=== PATIENT | male | born 1950 | race Caucasian/White ===

== ENCOUNTER 2020-01-28 05:52 | Day surgery (SDC) | payer MEDICARE ==
[2020-01-28] MEDS ORDERED: Lactated Ringers 1,000 ML IV SCH (06:30)
[2020-01-28] MEDS ORDERED: DIPRIVAN 200 MG/20 ML IV ONE (07:49)
[2020-01-28 08:44] VITALS: O2SAT 97
[2020-01-28 08:56] VITALS: BP 130/77; PULSE 62
--- NOTE | 2020-01-28 09:17 | OP ---
SURGERY DATE/TIME: 01/28/2020 0739 PREOPERATIVE DIAGNOSIS: History of colon polyps. POSTOPERATIVE DIAGNOSIS: Small polyp in hepatic flexure. PROCEDURE: Colonoscopy with cold forceps biopsy. SURGEON: Dr. Padron. ANESTHESIA: MAC. Medications given by anesthesia department. HISTORY: The patient is a 69 year old white male with a history of previous tubular adenoma on colonoscopy. The patient needs surveillance examination. He was appraised of the risks of the procedure including the risk of perforation, phlebitis, untoward reaction to medication, bleeding and missed lesions. The patient verbalized his understanding and desired to have the procedure performed. DESCRIPTION OF PROCEDURE: The patient was given the medications by the anesthesia department. He had continuous pulse oximetry, ECG monitoring, intermittent blood pressure monitoring and tidal CO2 monitoring during the examination. He was placed in the left lateral decubitus position. A digital rectal examination was performed and revealed normal anal sphincter tone, no masses and normal prostate. The flexible Olympus pediatric colonoscope was used to intubate the rectum. A view of the colon was developed sequentially to the cecum as identified by the appendiceal orifice and ileocecal valve. Upon insertion and withdrawal was noted a small polyp measuring approximately 0.7 cm in size at the hepatic flexure. With difficulty this was biopsied using cold biopsy technique to destroy the lesion. No other mucosal lesions being encountered, the scope was removed from the patient who tolerated the procedure well and was sent back to OP recovery in good condition. The prep was noted to be fair to good.
== END 2020-01-28 09:00 | disposition home or self-care (01) ==
LOC: SDC 05:52
PROVIDERS: ATTEND Family Medicine
DX: Z09 Encounter for follow-up examination after completed treatment for conditions other than malignant neoplasm (principal); K63.5 Polyp of colon
CPT/HCPCS: 88305; 94250; J2704

== ENCOUNTER 2020-04-26 09:15 | Emergency (ER) | payer MEDICARE ==
[2020-04-26] MEDS ORDERED: Sodium Chloride 0.9% 1000 ML 1,000 ML IV STA (09:32)
[2020-04-26] MEDS ORDERED: Sodium Chloride 0.9% 1000 ML 1,000 ML ONE (09:38)
--- NOTE | 2020-04-26 09:40 | ERPHSYRPT ---
- History of Present Illness Time Seen by Provider: 04/26/20 09:17 Historian: patient Exam Limitations: no limitations Patient Subjective Stated Complaint: Pt states "Early this morning I started to have left flank pain and pain in my left groin area. I have had kidney stones and hernia before." Triage Nursing Assessment: Pt presented alert and oriented X 3, skin wpd Pt ambulates with an upright steady gait, able to speak in clear full sentences pt in no apparent respiratory distress. Physician History: 69 years old male with history of hypertension, BPH, kidney stones presented in the ER with chief complaint of sudden onset left flank pain around 1130 last night, constant, moderate to severe intensity, sharp in nature, radiating to left groin, aggravated with movements palpation/walking and partial relief with taking Tylenol and resting. Also report mild difficulty urination since morning but denies any dysuria, increased frequency or hematuria. Denies any associated nausea or vomiting. No fever or chills reported. Symptoms are similar to last time when he had kidney stone. Patient reports marked improvement in pain just prior to arrival in the ER and does not want any pain medications now. Timing/Duration: yesterday, constant, sudden, improved Activities at Onset: rest Quality: sharpness Abdominal Pain Onset Location: LLQ, flank Pain Radiation: groin Severity of Pain-Max: severe Severity of Pain-Current: mild Modifying Factors: Improves With: rest. Worsens With: coughing, movement, palpa tion, walking Associated Symptoms: denies symptoms Previous symptoms: same symptoms as today Allergies/Adverse Reactions: clarithromycin [From Biaxin] Allergy (Verified 01/28/20 06:47) adhesive tape Adverse Reaction (Verified 01/28/20 06:47) Home Medications: Amlodipine Besylate 5 mg [Norvasc 5 mg] 5 mg PO DAILY 01/16/15 [History] Aspirin [Aspirin EC] 81 mg PO DAILY 01/16/15 [History] Carvedilol 12.5 mg [Coreg 12.5 mg] 6.25 mg PO BID 01/16/15 [History] Finasteride 5 mg [Proscar 5 MG] 5 mg PO DAILY 01/17/20 [History] Losartan Potassium 50 mg [Cozaar 50 MG] 50 mg PO DAILY 01/17/20 [History] Tamsulosin HCl 0.4 mg [Flomax 0.4 MG] 0.4 mg PO DAILY 01/17/20 [History] Melatonin 5 mg PO HS 01/28/20 [History] Hx Tetanus, Diphtheria Vaccination/Date Given: Yes Hx Influenza Vaccination/Date Given: No Hx Pneumococcal Vaccination/Date Given: No Immunizations Up to Date: Yes Travel Risk - International Travel Have you traveled outside of the country in past 3 weeks: No - Coronavirus Screening Are you exhibiting any of the following symptoms?: No Close contact with a COVID-19 positive Pt in past 14-21 Days: No - Review of Systems Constitutional: No Symptoms Eyes: No Symptoms Ears, Nose, & Throat: No Symptoms Respiratory: No Symptoms Cardiac: No Symptoms Abdominal/Gastrointestinal: Abdominal Pain Genitourinary Symptoms: Hesitancy, Flank Pain Musculoskeletal: No Symptoms Neurological: No Symptoms Psychological: No Symptoms Endocrine: No Symptoms - Past Medical History Pertinent Past Medical History: Yes Neurological History: No Pertinent History ENT History: Cataracts, Other Cardiac History: Arrhythmia, Hypertension Respiratory History: No Pertinent History Endocrine Medical History: No Pertinent History Musculoskeletal History: Arthritis GI Medical History: Polyps History: No Pertinent History Psycho-Social History: No Pertinent History Male Reproductive Disorders: Prostate Problems Other Medical History: past history corneal erosion-bilateral eyes, no problems currently. unsure of prostate problems-up and down a lot to void - Past Surgical History Past Surgical History: Yes Neuro Surgical History: No Pertinent History Cardiac: Other Respiratory: No Pertinent History Gastrointestinal: Hernia Repair Genitourinary: No Pertinent History Musculoskeletal: Orthopedic Surgery Male Surgical History: No Pertinent History Other Surgical History: cardiac-pt had hx chroic a. fib 8-9 years ago had a procedure called "maize" procedure. hernia repair x3. bilateral meniscus repair - Social History Smoking Status: Former smoker Exposure to second hand smoke: Yes Drug Use: none Patient Lives Alone: No - Nursing Vital Signs Nursing Vital Signs: Initial Vital Signs Temperature 97.5 F 04/26/20 09:22 Pulse Rate 64 04/26/20 09:22 Respiratory Rate 18 04/26/20 09:22 Blood Pressure 136/83 04/26/20 09:22 O2 Sat by Pulse Oximetry 98 04/26/20 09:22 Pain Scale Pain Intensity 2 - Physical Exam General Appearance: no apparent distress, alert Eye Exam: PERRL/EOMI, eyes nml inspection Ears, Nose, Throat Exam: normal ENT inspection, pharynx normal Neck Exam: normal inspection, non-tender, supple, full range of motion Respiratory Exam: normal breath sounds, lungs clear Cardiovascular Exam: regular rate/rhythm, normal heart sounds Gastrointestinal/Abdomen Exam: soft, normal bowel sounds, tenderness (Left flank/left lower quadrant/groin. Positive expansile cough impulse. Reducible hernia left groin.) Back Exam: normal inspection Extremity Exam: normal inspection, normal range of motion Neurologic Exam: alert, oriented x 3, cooperative Skin Exam: normal color SpO2 Interpretation: normal SpO2: 98 O2 Delivery: Room Air Ordered Tests: Active Orders 24 hr Category Date Time Status IV Insertion STAT Care 04/26/20 09:32 Active NPO (ED) STAT Care 04/26/20 09:32 Active ABDOMEN AND PELVIS W/0 CONTRAS [CT] Stat Exams 04/26/20 09:32 Completed CBC W DIFF Stat Lab 04/26/20 09:40 Completed CMP Stat Lab 04/26/20 09:40 Completed LIPASE Stat Lab 04/26/20 09:40 Completed UA W/RFX UR CULTURE Stat Lab 04/26/20 10:50 Completed Medication Summary Discontinued Medications Generic Name Dose Route Start Last Admin Trade Name Esvin PRN Reason Stop Dose Admin Sodium Chloride 1,000 mls @ 999 mls/hr 04/26/20 09:32 04/26/20 10:49 Sodium Chloride 0.9% 1000 Ml IV 04/26/20 10:32 Infused .Q1H1M STA Infusion Sodium Chloride Confirm 04/26/20 09:38 Sodium Chloride 0.9% 1000 Ml Administered 04/26/20 09:39 Dose 1,000 mls @ ud .ROUTE .STK-MED ONE Lab/Rad Data: Laboratory Result Diagrams 04/26/20 09:40 04/26/20 09:40 Laboratory Results 04/26/20 04/26/20 04/26/20 Range/Units 10:50 09:40 09:40 WBC 8.0 (4.0-10.5) K/mm3 RBC 5.12 (4.1-5.6) M/mm3 Hgb 14.2 (12.5-18.0) gm/dl Hct 43.4 (42-50) % MCV 84.8 (78-100) fl MCH 27.7 (26-32) pg MCHC 32.7 (32-36) g/dl RDW 12.8 (11.5-14.0) % Plt Count 213 (150-450) K/mm3 MPV 8.8 (7.5-11.0) fl Gran % 61.3 (36.0-66.0) % Eos # (Auto) 0.44 (0-0.5) Absolute Lymphs (auto) 1.85 (1.0-4.6) Absolute Monos (auto) 0.71 (0.0-1.3) Lymphocytes % 23.0 L (24.0-44.0) % Monocytes % 8.8 (0.0-12.0) % Eosinophils % 5.5 H (0.00-5.0) % Basophils % 1.4 (0.0-0.4) % Absolute Granulocytes 4.92 (1.4-6.9) Basophils # 0.11 (0-0.4) Sodium 138 (137-145) mmol/L Potassium 4.3 (3.5-5.1) mmol/L Chloride 102 (98-107) mmol/L Carbon Dioxide 28 (22-30) mmol/L Anion Gap 12.2 (5-15) MEQ/L BUN 25 H (9-20) mg/dL Creatinine 1.14 (0.66-1.25) mg/dL Estimated GFR > 60.0 ML/MIN Glucose 115 H (74-106) mg/dL Calcium 9.7 (8.4-10.2) mg/dL Total Bilirubin 0.50 (0.2-1.3) mg/dL AST 24 (17-59) U/L ALT 24 (0-50) U/L Alkaline Phosphatase 105 (38-126) U/L Serum Total Protein 8.0 (6.3-8.2) g/dL Albumin 4.3 (3.5-5.0) g/dL Lipase 187 (23-300) U/L Urine Color YELLOW (YELLOW) Urine Appearance CLEAR (CLEAR) Urine pH 5.0 (5-6) Ur Specific Gunpowder 1.014 (1.005-1.025) Urine Protein NEGATIVE (Negative) Urine Ketones NEGATIVE (NEGATIVE) Urine Blood MODERATE (0-5) Jarek/ul Urine Nitrite NEGATIVE (NEGATIVE) Urine Bilirubin NEGATIVE (NEGATIVE) Urine Urobilinogen NEGATIVE (0-1) mg/dL Ur Leukocyte Esterase NEGATIVE (NEGATIVE) Urine WBC (Auto) 0-2 (0-5) /HPF Urine RBC (Auto) 6-10 (0-2) /HPF U Epithel Cells (Auto) NONE (FEW) /HPF Urine Bacteria (Auto) NONE (NEGATIVE) /HPF Urine Mucus (Auto) SLIGHT (NEGATIVE) /HPF Urine Culture Reflexed NO (NO) Urine Glucose NEGATIVE (NEGATIVE) mg/dL - Progress Progress: improved, re-examined Progress Note: 04/26/20 11:33 69 years old is evaluated for left flank pain. His pain is much improved on presentation. Refused pain medications. Is given fluid bolus. Has normal white count, grossly unremarkable chemistries. CT showed distended ureter with some perinephric fat stranding/hydroureteric nephrosis with stones in the bladder consistent with recent passage. No UTI. Recommended outpatient follow- up with his urologist Dr. Chandler. Discussed signs symptoms of worsening needing return to ER which he seems understanding. Counseled pt/family regarding: lab results, diagnosis, need for follow-up, rad results - Departure Departure Disposition: Home Clinical Impression: Ureteral stone with hydronephrosis Condition: Stable Critical Care Time: No Referrals: ARTURO HESTER [Primary Care Provider] - Follow Up with PCP/3 days STEPAN CHANDLER [COURTESY STAFF] - (1-2 days for reevaluation.) Instructions: Kidney Stones (DC) Additional Instructions: Drink plenty of fluids. Take Tylenol/ibuprofen as needed for pain. Follow-up with your primary care and urologist for reevaluation. Return to ER for worsening pain, fever chills vomiting etc.
[2020-04-26 09:44] LABS: Absolute Neutrophil Ct (ANC) 4.92 (1.4-6.9); BASOPHIL % 1.4 % (0.0-0.4); Basophil (Absolute #) 0.11 (0-0.4); Eosinophil % 5.5 % (0.00-5.0); Eosinophil (Absolute #) 0.44 (0-0.5); Hematocrit 43.4 % (42-50); Hemoglobin 14.2 gm/dl (12.5-18.0); Lymphocyte (Absolute #) 1.85 (1.0-4.6); Mean Cell Volume 84.8 fl (78-100); Mean Corpuscular Hemoglobin 27.7 pg (26-32); Mean Corpuscular Hgb Concent. 32.7 g/dl (32-36); Mean Platelet Volume 8.8 fl (7.5-11.0); Monocyte (Absolute #) 0.71 (0.0-1.3); Monocytes % 8.8 % (0.0-12.0); Neutrophil % 61.3 % (36.0-66.0); Platelet Count 213 K/mm3 (150-450); Red Blood Count 5.12 M/mm3 (4.1-5.6); Red Cell Distribution Width 12.8 % (11.5-14.0)
[2020-04-26 09:55] LABS: ALBUMIN 4.3 g/dL (3.5-5.0); ALKALINE PHOSPHATASE 105 U/L (38-126); ANION GAP 12.2 MEQ/L (5-15); BLOOD UREA NITROGEN 25 mg/dL (9-20); CHLORIDE 102 mmol/L (98-107); Calcium 9.7 mg/dL (8.4-10.2); Carbon Dioxide 28 mmol/L (22-30); Creatinine 1 1.14 mg/dL (0.66-1.25); EST GLOMERULAR FILTRATION RATE > 60.0 ML/MIN; Glucose 115 mg/dL (74-106); LIPASE 187 U/L (23-300); Potassium 4.3 mmol/L (3.5-5.1); SGOT/AST 24 U/L (17-59); SGPT/ALT 24 U/L (0-50); SODIUM 138 mmol/L (137-145)
--- NOTE | 2020-04-26 10:11 | XRAY ---
Indication: Left flank pain. Multiple contiguous axial images obtained through the abdomen and pelvis without contrast using renal stone protocol. Comparison: January 24, 2016. Lung bases again demonstrates minimal fibrosis/scarring. No infiltrate or effusion. Heart is not enlarged. Posterior urinary bladder demonstrates 2 new calculi, largest on the right measuring 1 cm and smaller on the left measuring 3 mm. Left ureter is asymmetrically prominent up to 6-7 mm with mild left hydronephrosis/perinephric stranding favoring recent passage of calculus. Left kidney again demonstrates punctate calculus. Stable bilateral renal cortical cysts. Noncontrasted stomach and bowel loops are nonobstructed. Appendix demonstrates new appendicolith without CT features for appendicitis. No free fluid/air. Remaining liver, gallbladder, pancreas, spleen, adrenal glands, kidneys, ureters, and bladder are unremarkable for noncontrast exam. Again mild scattered aortoiliac calcifications without AAA. Osseous structures intact again with mild degenerative changes throughout the thoracolumbar spine. Stable small fatty left inguinal hernia. Impression: 1. 2 new urinary bladder calculi as detailed. Mild left hydronephrosis with perinephric stranding and minimal hydroureter favors recent passage of calculus. 2. New appendicolith without appendicitis. 3. Again incidental left renal punctate calculus, bilateral renal cysts, fatty left inguinal hernia, and chronic bony findings.
[2020-04-26 11:21] LABS: Appearance CLEAR (CLEAR); Bilirubin NEGATIVE (NEGATIVE); Blood MODERATE Ery/ul (0-5); Glucose NEGATIVE (NEGATIVE); Ketones NEGATIVE (NEGATIVE); Leukocyte Esterase NEGATIVE (NEGATIVE); Mucus SLIGHT /HPF (NEGATIVE); Nitrite NEGATIVE (NEGATIVE); Protein,Urine Dip NEGATIVE (Negative); Specific Gravity 1.014 (1.005-1.025); Urobilinogen NEGATIVE mg/dL (0-1); WBC 0-2 /HPF (0-5)
[2020-04-26 11:44] VITALS: BP 161/85; PULSE 71; O2SAT 97
== END 2020-04-26 11:57 | disposition home or self-care (01) ==
LOC: ED 09:15
DX: R10.32 Left lower quadrant pain (principal); N13.2 Hydronephrosis with renal and ureteral calculous obstruction; I10 Essential (primary) hypertension; Z79.899 Other long term (current) drug therapy; Z87.442 Personal history of urinary calculi
CPT/HCPCS: 36000; 36415; 74176; 80053; 81001; 83690; 85025; 96360; 99284